=== PATIENT | female | born 1950 | race Caucasian/White ===

== ENCOUNTER 2017-10-25 10:48 | Outpatient (CLI) | payer MEDICARE, BC ==
--- NOTE | 2017-10-25 15:20 | CT Report ---
CT OF CHEST WITHOUT CONTRAST FOR LUNG CANCER SCREENIN10/25/2017 CLINICAL INDICATION: A 66-year-old current smoker with a 27-[id number] history of smoking, for lung cancer screening. COMPARISON: No previous CT is available for comparison. TECHNIQUE: Axial noncontrast images of the chest, using low-dose screening technique. In accordance with CT protocol optimization, one or more of the following dose reduction techniques were utilized for this exam: automated exposure control, adjustment of mA and/or KV based on patient size, or use of iterative reconstructive technique. FINDINGS: The heart and great vessels demonstrate minimal atherosclerotic calcification. 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 No hilar or mediastinal lymphadenopathy is present. The lungs demonstrate minimal emphysema. No pulmonary nodule or mass lesion is identified. No effusion or pneumothorax is present. Limited evaluation of the upper abdominal structures demonstrates normal adrenal glands and normal situs. Osseous structures demonstrate mild degenerative changes. IMPRESSION: NEGATIVE EXAMINATION. RECOMMENDATION: CONTINUE ANNUAL SCREENING WITH LOW DOSE CHEST CT IN TWELVE MONTHS. LUNG RADS CATEGORY 1 - NEGATIVE. TD: 10/25/2017 12:23 MTDD
== END 2017-10-25 10:49 | disposition home or self-care (01) ==
LOC: DI 10:48
PROVIDERS: ATTEND Physician Assistant
DX: Z12.2 Encounter for screening for malignant neoplasm of respiratory organs (principal); F17.210 Nicotine dependence, cigarettes, uncomplicated